=== PATIENT | female | born 1965 | race Caucasian/White ===

== ENCOUNTER 2018-02-22 17:47 | Emergency (ER) | payer OTHER ==
[~2018-02-22] VITALS: Ht 149.9 cm; Wt 61.9 kg
[2018-02-22 17:50] VITALS: BP 116/57
--- NOTE | 2018-02-22 17:54 | NUR ---
PT AMBULATED TO BED 4
--- NOTE | 2018-02-22 18:00 | NUR ---
PATIENT PRESENTS TO ED FOR COMPLAINTS OF RIB PAIN AND NEEDING A DOCTORS NOTE TO RETURN TO WORK FROM PREVIOUS VISIT YESTERDAY FOR [employer]NC[employer]. PATIENT DENIES TRAUMA TO AREA. DENIES N/V. REPORTS DIARRHEA STARTING THIS MORNING. SKIN IS PINK/WARM/DRY; AAOX4 WITH EVEN AND STEADY GAIT; LUNGS CLEAR BL; HR EVEN AND REGULAR; PT DENIES ANY FEVER, CP, SOB, OR COUGH AT THIS TIME; PATIENT STATES PAIN OF 8/10 AT THIS TIME; VSS; PATIENT POSITIONED FOR COMFORT; HOB ELEVATED; BEDRAILS UP X1; BED DOWN. ER MD MADE AWARE OF PT STATUS.
[2018-02-22] MEDS ORDERED: IBUPROFEN 800 MG TAB PO ONE (18:05)
--- NOTE | 2018-02-22 18:15 | NUR ---
XRAY AT BEDSIDE
--- NOTE | 2018-02-22 18:20 | NUR ---
LABS DRAWN ON PATIENT; SENT TO LAB
[2018-02-22 18:40] LABS: BASOPHILS # (AUTO) 0.1 K/uL (0.00-0.22); BASOPHILS % (AUTO) 0.5 % (0.0-2.0); EOSINOPHILS # (AUTO) 0.1 K/uL (0-0.4); EOSINOPHILS % (AUTO) 0.7 % (0.0-4.0); HEMOGLOBIN 9.6 g/dL (12.0-16.0); LYMPHOCYTES # (AUTO) 0.9 K/uL (2.5-16.5); LYMPHOCYTES % (AUTO) 8.3 % (20.5-51.1); MEAN CORPUSCULAR HEMOGLOBIN 19 pg (27-31); MEAN CORPUSCULAR HGB CONC 30 g/dL (33-37); MEAN CORPUSCULAR VOLUME 62.9 fL (80-94); MONOCYTES # (AUTO) 1.2 K/uL (0.8-1.0); MONOCYTES % (AUTO) 11.2 % (1.7-9.3); NEUTROPHILS # (AUTO) 8.2 K/uL (1.8-7.7); NEUTROPHILS % (AUTO) 79.3 % (42.2-75.2); PLATELET COUNT (AUTO) 313 K/uL (140-450); RED BLOOD CELL COUNT(AUTO) 5.09 MIL/uL (4.20-5.40); RED CELL DISTRIBUTION WIDTH 20.1 % (11.6-13.7); WHITE BLOOD COUNT (AUTO) 10.3 K/uL (4.8-10.8)
[2018-02-22 18:54] LABS: ALBUMIN 3.8 g/dL (3.4-5.0); CARBON DIOXIDE 28.8 mmol/L (21-32); CREATININE 0.6 mg/dL (0.6-1.3); POTASSIUM 3.8 mmol/L (3.5-5.1); TOTAL BILIRUBIN 0.4 mg/dL (0.0-1.0)
--- NOTE | 2018-02-22 19:00 | NUR ---
Patient discharged with v/s stable. Written and verbal after care instructions given and explained. Patient verbalized understanding. Ambulatory with steady gait. All questions addressed prior to discharge. Advised to follow up with PMD.
[2018-02-22 19:03] VITALS: BP 116/57
== END 2018-02-22 19:00 | disposition home or self-care (01) ==
LOC: MED 17:47
DX: D64.9 Anemia, unspecified (principal); R53.1 Weakness; N39.0 Urinary tract infection, site not specified
CPT/HCPCS: 36415; 71045; 80053; 81002; 81025; 85025; 99285

== ENCOUNTER 2022-07-24 22:49 | Emergency (ER) | payer OTHER ==
[~2022-07-24] VITALS: Ht 149.9 cm; Wt 65.8 kg
[2022-07-24 23:14] VITALS: BP 160/95
--- NOTE | 2022-07-24 23:21 | NUR ---
Dr. Rick examining patient.
[2022-07-24] MEDS ORDERED: KETOROLAC 60 MG/2 ML VIAL IM ONE (23:30)
[2022-07-24] MEDS ORDERED: methylPREDNISolone SS 125 MG/2 ML VIAL IM ONE (23:30)
[2022-07-24] MEDS ORDERED: INDO-305 PO (23:42)
[2022-07-24] MEDS ORDERED: PRED20TA5 PO (23:42)
[2022-07-25 00:03] VITALS: BP 160/95
--- NOTE | 2022-07-25 00:03 | NUR ---
Patient discharged with v/s stable. Written and verbal after care instructions given and explained. Patient alert, oriented and verbalized understanding of instructions. Ambulatory with steady gait. All questions addressed prior to discharge. ID band removed. Patient advised to follow up with PMD. Rx of PREDNISONE given.
--- NOTE | 2022-07-25 00:04 | NUR ---
The patient's care was reviewed and supervised by Teresa Carrasco RN.
== END 2022-07-25 00:03 | disposition home or self-care (01) ==
LOC: MED 22:49
DX: M10.9 Gout, unspecified (principal)
CPT/HCPCS: 96372; 99284; J1885; J2930